=== PATIENT | male | born 1950 | race Caucasian/White ===

== ENCOUNTER 2022-09-01 10:53 | Emergency (ER) | payer OTHER ==
--- NOTE | 2022-09-01 11:42 | RAD REPORT ---
EXAM DESCRIPTION: CT - Head Brain Wo Cont - 09/01/2022 11:31 am CLINICAL HISTORY: right eye blurred vision COMPARISON: No comparisons TECHNIQUE: All CT scans are performed using dose optimization technique as appropriate and may inclu de automated exposure control or mA/KV adjustment according to patient size. FINDINGS: No intracranial hemorrhage, hydrocephalus or extra-axial fluid collection.No areas of brai n edema or evidence of midline shift. Intracranial atherosclerosis. Right mastoid fluid. Mild mucosal thickening right maxillary sinus. The calvarium is intact. IMPRESSION: No acute intracranial abnormality.
[2022-09-01 12:04] LABS: Absolute Lymphocytes (CBC) 1.5 K/uL (0.7-4.9); Lymphocytes % 12.8 % (15.3-44.8); MCV 86.2 fL (80-100); MPV 7.8 fL (7.6-11.3)
[2022-09-01 12:20] LABS: Potassium 3.9 mmol/L (3.5-5.1)
--- NOTE | 2022-09-01 12:42 | ER ---
Nurse's Notes [facility] Name: Theodore Smallwood Age: 72 yrs Sex: Male : 1950 Arrival Date: 09/01/2022 Time: 11:07 Bed IW1 Private MD: Diagnosis: Low vision, one eye, unspecified eye Presentation: 09/01 11:17 Chief complaint: Patient states: Intermittent right eye blurred vision x 10 years; this jl7 time 22 days straight. Coronavirus screen: Vaccine status: Patient reports receiving the 2nd dose of the covid vaccine. At this time, the client does not indicate any symptoms associated with coronavirus-19. Ebola Screen: No symptoms or risks identified at this time. Initial Sepsis Screen: Does the patient meet any 2 criteria? No. Patient's initial sepsis screen is negative. Does the patient have a suspected source of infection? No. Patient's initial sepsis screen is negative. Risk Assessment: Do you want to hurt yourself or someone else? Patient reports no desire to harm self or others. Onset of symptoms is unknown. 11:17 Method Of Arrival: Ambulatory jl7 11:17 Acuity: NICOLE 3 jl7 Triage Assessment: 11:19 General: Appears in no apparent distress. uncomfortable, Behavior is calm, cooperative, jl7 appropriate for age. Pain: Denies pain. EENT: Reports blurred vision in right eye. Historical: - Allergies: 11:19 No Known Allergies; jl7 - Home Meds: 11:19 losartan oral [Active]; sertraline oral [Active]; jl7 - PMHx: 11:19 Migraine; Hypertensive disorder; ADHD; jl7 - PSHx: 11:19 None; jl7 - Immunization history:: Client reports receiving the 2nd dose of the Covid vaccine. - Social history:: Smoking status: Patient denies any tobacco usage or history of. Screenin:59 [facility] ED Fall Risk Assessment (Adult) History of falling in the last 3 months, ss including since admission. Abuse screen: Denies threats or abuse. Denies injuries from another. Nutritional screening: No deficits noted. Tuberculosis screening: Never had TB. Assessment: 12:59 General: Appears in no apparent distress. comfortable, Behavior is calm, cooperative. ss Neuro: Level of Consciousness is awake, alert, obeys commands. Respiratory: Airway is patent Respiratory effort is even, unlabored, Respiratory pattern is regular, symmetrical. Derm: Skin is pink, warm \T\ dry. normal. Vital Signs: 11:17 BP 174 / 89; Pulse 96; Resp 15; Temp 97.1; Pulse Ox 97% ; Weight 104.78 kg; Height 5 jl7 ft. 8 in. (172.72 cm); Pain 0/10; 11:17 Body Mass Index 35.12 (104.78 kg, 172.72 cm) jl7 ED Course: 11:07 Patient arrived in ED. as 11:10 Romulo Escalante DO is Attending Physician. ms3 11:19 Triage completed. jl7 11:19 Arm band placed on right wrist. Patient placed in waiting room, Patient notified of 7 wait time. 12:18 CBC with Diff Sent. jl7 12:18 BMP Sent. jl7 12:18 CT Head Brain wo Cont Sent. jl7 12:40 Raul Trujillo MD is Referral Physician. ms3 12:41 John Willis MD is Referral Physician. ms3 12:58 No provider procedures requiring assistance completed. IV discontinued, intact, ss bleeding controlled, No redness/swelling at site. Pressure dressing applied. 12:59 Patient has correct armband on for positive identification. ss Administered Medications: No medications were administered Medication: 12:59 VIS not applicable for this client. ss Outcome: 12:41 Discharge ordered by . ms3 12:58 Discharged to home ambulatory. ss 12:58 Condition: good 12:58 Discharge instructions given to patient, Instructed on discharge instructions, follow up and referral plans. Demonstrated understanding of instructions, follow-up care. 13:00 Patient left the ED. ss Signatures: Lisa Cerrato Shelby, RN RN Mark Gannon RN RN jl7 Romulo Escalante DO DO ms3
--- NOTE | 2022-09-01 12:43 | EDPHYS ---
Physician Documentation [facility] Name: Theodore Smallwood Age: 72 yrs Sex: Male : 1950 Arrival Date: 09/01/2022 Time: 11:07 Bed IW1 Private MD: ED Physician Romulo Escalante HPI: 09/01 11:23 This 72 yrs old Male presents to ER via Ambulatory with complaints of Blurred Vision, ms3 Loss Of Vision. 11:23 72-year-old male with past medical history of migraine, hypertension, ADHD presents for ms3 right eye blurry vision. Patient states for the last 10 years he has had intermittent blurry vision in his right eye. Patient states for the last 22 days he has had blurry vision at the same time every day. Patient states there is no pain currently. Patient is seen 2 eye doctors which have pointed him to go see neurology. Patient saw his primary care doctor yesterday and was instructed to go to the emergency department. Patient states that each episode of blurry vision last approximately 2 to 3 hours and then spontaneously resolves.. Historical: - Allergies: 11:19 No Known Allergies; jl7 - Home Meds: 11:19 losartan oral [Active]; sertraline oral [Active]; jl7 - PMHx: 11:19 Migraine; Hypertensive disorder; ADHD; jl7 - PSHx: 11:19 None; jl7 - Immunization history:: Client reports receiving the 2nd dose of the Covid vaccine. - Social history:: Smoking status: Patient denies any tobacco usage or history of. ROS: 11:23 Constitutional: Negative for fever, and chills. Neck: Negative for injury, pain, and ms3 swelling, Cardiovascular: Negative for chest pain, and palpitations. Respiratory: Negative for shortness of breath, cough, wheezing, and pleuritic chest pain, Abdomen/GI: Negative for abdominal pain, nausea, vomiting, diarrhea, and constipation, MS/Extremity: Negative for injury and deformity, Skin: Negative for injury, rash, and discoloration. 11:23 Eyes: Positive for blurry vision. 11:23 All other systems are negative. Exam: 11:23 Constitutional: This is a well developed, well nourished patient who is awake, alert, ms3 and in no acute distress. Head/Face: Normocephalic, atraumatic. Neck: Trachea midline, no cervical lymphadenopathy. Supple, full range of motion without nuchal rigidity, or vertebral point tenderness. No Meningismus. Chest/axilla: Normal chest wall appearance and motion. Nontender with no deformity. Cardiovascular: Regular rate and rhythm with a normal S1 and S2. No gallops, murmurs, or rubs. Normal PMI, no JVD. No pulse deficits. Respiratory: Lungs have equal breath sounds bilaterally, clear to auscultation and percussion. No rales, rhonchi or wheezes noted. No increased work of breathing, no retractions or nasal flaring. Abdomen/GI: Soft, non-tender, with normal bowel sounds. No distension or tympany. No guarding or rebound. No evidence of tenderness throughout. Skin: Warm, dry with normal turgor. Normal color with no rashes, no lesions, and no evidence of cellulitis. MS/ Extremity: Pulses equal, no cyanosis. Neurovascular intact. Full, normal range of motion. 11:23 Eyes: Pupils: equal, round, and reactive to light and accomodation, Extraocular movements: no acute changes, Lens replacement left eye. Vital Signs: 11:17 BP 174 / 89; Pulse 96; Resp 15; Temp 97.1; Pulse Ox 97% ; Weight 104.78 kg; Height 5 jl7 ft. 8 in. (172.72 cm); Pain 0/10; 11:17 Body Mass Index 35.12 (104.78 kg, 172.72 cm) jl7 MDM: 11:26 Patient medically screened. ms3 12:43 Differential diagnosis: Hyperglycemia vs intracranial mass vs vision changes. ms3 12:53 Data reviewed: vital signs, nurses notes, and as a result, I will discharge patient. ms3 Independent interpretation of the following test(s) in the Emergency Department CT Scan: My interpretation is CT Head images reviewed by me: No ICH visualized. Counseling: I had a detailed discussion with the patient and/or guardian regarding: the historical points, exam findings, and any diagnostic results supporting the discharge/admit diagnosis, lab results, radiology results, the need for outpatient follow up, to return to the emergency department if symptoms worsen or persist or if there are any questions or concerns that arise at home. ED course: Discussed CT head, labs with patient. Patient to follow-up with Dr. Willis and Dr. Mejia in 2 to 3 days. Patient understands and agrees with plan. All questions were answered. Return precautions discussed include numbness, weakness, headache, worsening symptoms, or any other concerns. On reevaluation patient states vision is improved, patient is alert and oriented x4, no apparent distress, nontoxic, ambulatory in emergency department, speaking full sentences.. 09/01 11:19 Order name: CBC with Diff ms3 09/01 11:19 Order name: BMP ms3 09/01 11:19 Order name: CT Head Brain wo Cont ms3 09/01 11:42 Order name: CT; Complete Time: 12:33 EDMS 09/01 12:04 Order name: CBC with Automated Diff; Complete Time: 12:33 EDMS 09/01 12:21 Order name: Basic Metabolic Panel; Complete Time: 12:33 EDMS Administered Medications: No medications were administered Disposition Summary: 09/01/22 12:41 Discharge Ordered Location: Home ms3 Condition: Stable ms3 Diagnosis - Low vision, one eye, unspecified eye ms3 Followup: ms3 - With: Raul Trujillo MD - When: 2 - 3 days - Reason: Recheck today's complaints Followup: ms3 - With: John Willis MD - When: 2 - 3 days - Reason: Recheck today's complaints Discharge Instructions: - Discharge Summary Sheet ms3 - Visual Disturbances ms3 Forms: - Medication Reconciliation Form ms3 - Thank You Letter ms3 - Antibiotic Education ms3 - Prescription Opioid Use ms3 Signatures: Dispatcher [employer] EDMark Rojo RN RN jl7 Romulo Escalante DO DO ms3
[2022-09-01 13:10] VITALS: BP 174/89; TEMP 97.1; O2SAT 97
== END 2022-09-01 13:00 | disposition home or self-care (01) ==
LOC: ER 10:53
DX: H54.50 Low vision, one eye, unspecified eye (principal); I10 Essential (primary) hypertension; F90.9 Attention-deficit hyperactivity disorder, unspecified type
CPT/HCPCS: 36415; 70450; 80048; 85025